=== PATIENT | female | born 1970 ===

== ENCOUNTER → 2018-07-17 | Outpatient (CLI) | payer OTHER ==
[~2018-07-17] MED LIST: DIOVAN HCT 160-1 TA1 PO; OMEPRAZOLE10 MG PO; SYNTH PO
== END | disposition home or self-care (01) ==
LOC: SONOGRAMA 14:05
DX: E03.8 Other specified hypothyroidism (principal)

== ENCOUNTER 2018-07-23 09:50 | Day surgery (SDC) | payer OTHER | END 2018-07-23 15:35 | disposition home or self-care (01) | LOC: AMB-ENDOS 09:50 | DX: D13.1 Benign neoplasm of stomach (principal); K31.7 Polyp of stomach and duodenum ==

== ENCOUNTER 2019-03-24 12:38 | Emergency (ER) | payer OTHER ==
[~2019-03-24] VITALS: Ht 160 cm; Wt 76.2 kg
== END 2019-03-24 22:50 | disposition home or self-care (01) ==
LOC: ER 12:38
DX: R51 Headache (principal); D18.02 Hemangioma of intracranial structures
CPT/HCPCS: 70551